=== PATIENT | female | born 1965 | race Caucasian/White ===

== ENCOUNTER 2016-10-12 15:02 | Emergency (ER) | payer OTHER ==
[~2016-10-12] VITALS: Ht 144.8 cm; Wt 93.6 kg
[2016-10-12 16:03] LABS: HEMATOCRIT 40.5 % (36.0-46.0); MCH 30.4 PG (29.0-34.0); MCHC 35.3 G/DL (30.0-36.0); MCV 86.2 FL (83-99); MEAN PLAT.VOLUME 10.9 uM^3 (9.5-12.4); PLATELET COUNT 204 K/uL (156-360); RBC DIS.WIDTH-CV 12.6 % (11.8-14.6); RBC DIS.WIDTH-SD 38.8 % (39-53); WHITE BLOOD COUNT 8.8 K/uL (4.1-10.2)
[2016-10-12 16:08] LABS: ADD MIUA? YES; BILIRUBIN NEGATIVE; BLOOD LARGE; COLOR YELLOW ((YELLOW)); GLUCOSE (STRIP) >=1000; KETONES NEGATIVE; LEUKOCYTES NEGATIVE; NITRITE NEGATIVE; PROTEIN (STRIP) 30; SPECIFIC GRAVITY 1.039 (1.000-1.030); UROBILINOGEN 0.2 MG/DL (0.2-1.0)
[2016-10-12 16:11] LABS: CHLORIDE 105 mEq/L (99-109); SODIUM 138 mEq/L (136-147)
[2016-10-12 16:13] LABS: GLUCOSE 298 mg/dL (70-99)
[2016-10-12 16:14] LABS: ANION GAP 11 MEQ/L (2-14)
[2016-10-12 16:17] LABS: GFR ESTIMATE (CALCULATED) > 59 mL/min/
[2016-10-12 16:18] LABS: UREA NITROGEN (BUN) 18 mg/dL (9-23)
[2016-10-12 16:34] LABS: BACTERIA 2+ /HPF; CASTS NONE SEEN /LPF; CRYSTALS PRESENT; EPITHELIAL CELLS 1+ /HPF; MUCUS NONE SEEN /LPF; UCUL ADDED? NO; WHITE BLOOD CELLS NONE SEEN /HPF (0-5)
[2016-10-12 16:35] LABS: CALCIUM OXALATE CRYSTALS 2+ /HPF
[2016-10-12] MEDS ORDERED: FLOMAX0.4 MG PO (19:39)
[2016-10-12] MEDS ORDERED: PERCOCET 5/31 TABLET PO (19:39)
[2016-10-12] MEDS ORDERED: TORADOL10 MG PO (19:39)
[2016-10-12] MEDS ORDERED: ZOFRAN4 MG PO (19:40)
[2016-10-12] MEDS ORDERED: BACTRIM,SEPT1 TABLET PO (19:40)
[2016-10-12 20:42] VITALS: BP 115/69
== END 2016-10-12 20:43 | disposition home or self-care (01) ==
LOC: EME 15:02
DX: N20.0 Calculus of kidney (principal); Z87.442 Personal history of urinary calculi; Z88.6 Allergy status to analgesic agent
CPT/HCPCS: 74176; 80048; 81003; 85027; 99281; 99285; J0696; J1170; J1885; J2405; J7030; J7050